=== PATIENT | female | born 1965 | race Two or more races ===

== ENCOUNTER 2022-07-23 16:59 | Emergency (ER) | payer SELFPAY ==
[~2022-07-23] VITALS: Ht 157.5 cm; Wt 66.8 kg
[2022-07-23 18:41] LABS: Basophils # (auto) 0 10 ^3/uL (0-0.2); Basophils % (auto) 0.5 % (0.0-2.0); Eosinophils # (auto) 0.2 10 ^3/uL (0-0.8); Eosinophils % (auto) 2.9 % (0.0-7.0); Hematocrit 40.7 % (36.0-46.0); Hemoglobin 13.2 g/dL (12.2-16.2); Lymphocytes # (auto) 3.3 10 ^3/uL (0.4-5.4); Lymphocytes % (auto) 49.2 % (10.0-50.0); Mean Corpuscular Hemoglobin 27.1 pg (28.0-32.0); Mean Corpuscular Hgb Conc. 32.4 g/dL (32.0-36.0); Mean Corpuscular Volume 83.8 fL (80.0-100.0); Monocytes # (auto) 0.4 10 ^3/uL (0-1.3); Monocytes % (auto) 6.2 % (0.0-12.0); Neutrophils # (auto) 2.8 10 ^3/uL (1.6-8.6); Neutrophils % (auto) 41.2 % (37.0-80.0); Nucleated Red Blood Cells % 0.1 %; Red Blood Cells 4.85 10^6/uL (4.0-5.20); Red Cell Distribution Width 13.7 % (11.8-14.3); White Blood Cell 6.8 10^3/uL (4.4-10.8)
[2022-07-23 18:59] LABS: Albumin 3.9 g/dL (3.4-5.0); Calcium 8.7 mg/dL (8.5-10.1); Magnesium 2.2 mg/dL (1.6-2.6); Potassium 3.8 mmol/L (3.5-5.1)
[2022-07-23 19:06] LABS: Bilirubin, Total 0.4 mg/dL (0.2-1.0); Total Protein 7.3 g/dL (6.4-8.2)
[2022-07-24 03:05] VITALS: BP 141/75
== END 2022-07-24 03:16 | disposition home or self-care (01) ==
LOC: ER 16:59
DX: R51.9 Headache, unspecified (principal)
CPT/HCPCS: 36415; 70450; 80053; 83735; 85025; 85652

== ENCOUNTER 2025-02-14 19:23 | Emergency (ER) | payer MEDICAID, OTHER ==
[~2025-02-14] VITALS: Ht 157.5 cm; Wt 74.5 kg
--- NOTE | 2025-02-14 19:52 | ED.PDOC ---
History of Present Illness(SKN HPI Comments 59-year-old female with no reported PMHx presents with a chief complaint of rash x onset . Patient has a developing rash to the bottom of her left foot, and alongside her right thigh. Patient mentions that the rash on her foot is painful, but the one on her leg itches. Patient is able to ambulate but is in a wheelchair at this time. Patient denies any new soaps, detergents, new foods, or new skin products. Chief Complaint: Rash Time Seen by MD: 19:37 Primary Care Provider: NONE History of Present Illness: Medications, Allergies Allergies: Coded Allergies: NO KNOWN ALLERGIES (Unverified , 07/23/22) Information Source: Patient Mode of Arrival: Wheelchair Severity: Moderate Timing: Days Duration: Since onset Prehospital treatment: None Location: Foot, Leg Mechanism: Spontaneous Onset Developed: Pruritus, Rash Occurence: Indoors Object: None Condition of Object: None Retained Foreign Body: Unknown Immunization Status of Animal: NA Tetanus: Unknown Vital Signs Vital Signs Date Time Temp Pulse Resp B/P (MAP) Pulse Ox O2 Delivery O2 Flow Rate FiO2 02/14/25 19:45 98.5 68 16 115/73 (87) 96 98.5 Physical Exam General: Awake, alert and oriented. No acute distress. Skin: Skin in warm, dry and intact without rashes or lesions. HEENT: The head is normocephalic and atraumatic. Conjunctivae are clear without exudates or hemorrhage. Sclera is non-icteric. Neck: Normal range of motion. No JVD. Cardiac: Regular rate Respiratory: No signs of respiratory distress. No Stridor. Extremities: Vesicular rash along dermatomal pattern posterior left thigh, calf and dorsum of the foot. Mild swelling of the left foot. Neurological: The patient is awake, alert and oriented to person, place, and time with normal speech. Speech is clear. There is no facial asymmetry. Psychiatric: Appropriate mood and affect. Good judgement and insight. Review of Systems: REVIEW OF SYSTEMS: No fever, no chills, HEENT: No neck pain, no blurred vision Cardiac: No chest pain. No palpitations. 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 Was a procedure done?: No Differential Diagnosis (INTG) Differential Diagnosis: Cellulitis, Insect Envenomation, Other Differential Diagnosis: AIDS/HIV, Impetigo, Intertrigo, Molluscum contagiosum, Varicella, Other (Immunocompromise state) X-Ray, Labs, Meds, VS Vital Signs Date Time Temp Pulse Resp B/P (MAP) Pulse Ox O2 Delivery O2 Flow Rate FiO2 02/14/25 19:45 98.5 68 16 115/73 (87) 96 98.5 Lab Test 02/14/25 19:55 Range/Units White Blood Count 4.9 4.4-10.8 10^3/uL Red Blood Count 5.24 H 4.0-5.20 10^6/uL Hemoglobin 14.4 12.2-16.2 g/dL Hematocrit 43.6 36.0-46.0 % Mean Corpuscular Volume 83.2 80.0-100.0 fL Mean Corpuscular Hemoglobin 27.6 L 28.0-32.0 pg Mean Corpuscular Hemoglobin Concent 33.2 32.0-36.0 g/dL Red Cell Distribution Width 14.1 11.8-14.3 % Platelet Count 207 140-450 10^3/uL Mean Platelet Volume 8.0 6.9-10.8 fL Neutrophils (%) (Auto) 52.1 37.0-80.0 % Lymphocytes (%) (Auto) 33.6 10.0-50.0 % Monocytes (%) (Auto) 10.6 0.0-12.0 % Eosinophils (%) (Auto) 3.0 0.0-7.0 % Basophils (%) (Auto) 0.7 0.0-2.0 % Neutrophils # (Auto) 2.6 1.6-8.6 10 ^3/uL Lymphocytes # (Auto) 1.7 0.4-5.4 10 ^3/uL Monocytes # (Auto) 0.5 0-1.3 10 ^3/uL Eosinophils # (Auto) 0.1 0-0.8 10 ^3/uL Basophils # (Auto) 0 0-0.2 10 ^3/uL Nucleated Red Blood Cells 0.2 % Sodium Level 140 136-145 mmol/L Potassium Level 3.9 3.5-5.1 mmol/L Chloride Level 105 98-107 mmol/L Carbon Dioxide Level 26 20-31 mmol/L Anion Gap 9 5-15 Blood Urea Nitrogen 13 9-23 mg/dL Creatinine 0.96 0.550-1.02 mg/dL Glomerular Filtration Rate Calc 69 >90 mL/min BUN/Creatinine Ratio 13.5 10.0-20.0 Serum Glucose 102 74-106 mg/dL Calcium Level 10.0 8.7-10.4 mg/dL Total Bilirubin 0.4 0.2-1.0 mg/dL Aspartate Amino Transferase (AST) 20 13-40 U/L Alanine Aminotransferase (ALT) 32 7-40 U/L Alkaline Phosphatase 81 46-116 U/L Total Protein 7.3 5.7-8.2 g/dL Albumin 4.8 3.2-4.8 g/dL PATIENT: DOMINIQUE SHARMA ACCT: [id number] UNIT: [id number] : 1965 LOC: ER ROOM / BED: / AGE / SEX: 59 / F ADM STATUS: REG ER SERVICE 51 ORDERING PHYSICIAN: ADRIAN AGUSTIN MD PROCEDURE(s): LLDVT - LT Lower DVT REASON: LLE swelling, pain ORDER NUMBER(s): [id number], ACCESSION NUMBER(s): [id number] Left lower extremity venous duplex Clinical History: LLE swelling, pain Comparison: None Technique: Duplex Doppler evaluation of the deep venous system of the left lower extremity from the common femoral vein to the popliteal vein including color Doppler and spectral/pulsed waveform analysis was performed. Findings: The common femoral vein demonstrates appropriate compressibility and waveform variability. There is compressibility/patency of the great saphenous vein at the proximal thigh. The femoral vein demonstrates appropriate compressibility and waveform variability. The deep femoral vein demonstrates appropriate compressibility and waveform variability. The popliteal vein demonstrates appropriate compressibility and waveform variability. There is normal compressibility at the tibioperoneal trunk. Impression: No evidence of left femoropopliteal venous thrombosis. ATED BY: SHIELA BRITO MD DICTATED DATE/TIME: 02/14/252018 SIGNED BY: SHIELA BRITO MD SIGNED DATE/TIME: 02/14/252018 Time of 1ST Reevaluation: 20:07 Reevaluation 1ST: Unchanged Patient Education/Counseling: Need For Follow Up Family Education/Counseling: Need For Follow Up Departure 1 Departure Time of Disposition: 22:12 Impression: Primary Impression: [place] Disposition: 01 HOME / SELF CARE / HOMELESS Condition: Stable Additional Instructions: INSTRUCCIONES DE DEISI DE Urgencias Instrucciones: Barbara atentamente todas las instrucciones proporcionadas en meg paquete. Aunque le hayan dado el deisi del Departamento de Emergencias, esto no significa que tenga un "certificado de buena miranda". Hoy no se duval realizado ningn diagnstico definitivo para bethany sntomas. Es posible que ests en proceso de desarrollar court enfermedad grave. Es por eso que debe regresar al servicio de urgencias sin falta si presenta algn sntoma nuevo o que empeora (especialmente si bethany sntomas incluyen dolor en el pecho, dificultad para respirar, dolor abdominal, fiebre, dolor de cris, confusin, dificultad para kristen o caminar). Tambin es muy importante que consulte a un mdico de atencin primaria dentro de los prximos 3 a 5 griffin para realizar un seguimiento. Si no puede conseguir court cole, regrese al servicio de urgencias para court nueva evaluacin. Herpes zster: instrucciones de cuidado Tabla de contenido Descripcin general Ground Support Equipment Mechanic puedes cuidarte en casa? Cundo debes pedir ayuda? Crditos Herpes Descripcin general El herpes zster causa dolor y court erupcin con ampollas. La erupcin puede aparecer en cualquier parte del cuerpo, susan solo en un lado, el russ o el derecho. Aparece en court alfonso, franja o en court holli pequea. El dolor puede ser muy intenso. El herpes zster tambin puede causar hormigueo o picazn en la holli afectada. Las ampollas elza costras despus de unos griffin y sanan en 2 a 4 semanas. Los medicamentos pueden ayudarle a sentirse mejor y a prevenir problemas ms graves causados ??por el herpes zster. El herpes zster es causado por el mismo virus que causa la varicela. Cuando se tiene varicela, el virus penetra en las races nerviosas y permanece all (en estado latente) mucho despus de que se supera la varicela. Si el virus se activa de nuevo, puede causar herpes zster. El seguimiento es fundamental para velasquez tratamiento y seguridad. Asegrese de programar y acudir a todas bethany citas, y llame a velasquez mdico si tiene algn problema. Tambin es recomendable estar al tanto de los resultados de bethany pruebas y llevar court lista de los medicamentos que ronald. Ground Support Equipment Mechanic puedes cuidarte en casa? [place] bethany medicamentos con precaucin. Tmelos exactamente phan se los recetaron. Llame a velasquez mdico si paul que tiene algn problema con bethany medicamentos. Los antivirales le ayudan a recuperarse ms rpido. Intente no rascarse ni tocarse las ampollas. Mantenga las ampollas hmedas hasta que cicatricen. Court forma de hacerlo es cubrirlas con court joshua capa de vaselina y court venda antiadherente. [place] un analgsico de venta esther, phan acetaminofn (Tylenol), ibuprofeno (Advil, Motrin) o naproxeno (Aleve). Barbara y siga todas las instrucciones de la etiqueta. Evite el contacto cercano con otras personas hasta que las ampollas hayan sanado. Es muy importante que evite el contacto con personas que nunca hayan tenido varicela ni se hayan vacunado contra cassie. Los bebs pequeos y las personas embarazadas o con dificultades para combatir la infeccin (phan las personas con VIH, diabetes o cncer) corren un riesgo especial. Cundo debes pedir ayuda? Llame a velasquez mdico ahora o busque atencin mdica inmediata si: Tiene fiebre nueva o ms deisi. Tienes un ghulam dolor de cris y el rasheeda rgido. Pierdes la capacidad de pensar con claridad. La erupcin se extiende a la frente, la nariz, los ojos o los prpados. Tiene dolor en los ojos o velasquez visin empeora. Tiene un dolor nuevo en la tylor o no puede stock mover los msculos de la tylor. Las ampollas se propagan a nuevas partes del cuerpo. Tiene sntomas de infeccin, phan aumento del dolor, hinchazn, calor o enrojecimiento. Preste atencin a los cambios en velasquez miranda y asegrese de comunicarse con velasquez mdico si: La erupcin no duval sanado despus de 2 a 4 semanas. An tienes dolor despus de que la erupcin haya sanado. Crditos para el herpes zster: Instrucciones de cuidado Actualizado al: 30 [id number] Autor: Personal de [facility] Junta de revisin clnica Toda la educacin de [facility] es revisada por un equipo que incluye mdicos, enfermeras, profesionales avanzados, dietistas registrados y otros profesionales de la miranda. Comments 59-year-old female who presents with a rash appears to be shingles. We will treat with valacyclovir, pain medication. Patient well-appearing, nontoxic. Advised prompt follow-up with PCP, return to the ED with any new, worsening or concerning symptoms. I reviewed the following notes from the pt's past medical encounters: Encounter 2021 for headache The following tests were ordered, and results were reviewed by me: (See diagnostic results section) The following test were independently interpreted by me: N/A Additional information was gathered from interviewing the following independent historians: Patient's daughter at bedside I reviewed and agreed with the following test results read by other providers: N/A I discussed treatments and results with medical personnel and patient Decision regarding hospitalization or escalation of hospital level of care: Risks and benefits of admission for further treatment of patient's condition was considered however due to patient's stable condition patient will be discharged to follow up closely or return to care for worsening of condition or inability to follow up. Critical Care Note Critical Care Time?: No Stability Stability form required: No Heart Score Heart Score: Heart Score Response (Comments) Value History N/A 0 EKG N/A 0 Age N/A 0 Risk Factors N/A 0 Troponin N/A 0 Total 0 I personally scribed for ADRIAN AGUSTIN MD ([employer]) on 02/14/25 at 19:52. Electronically submitted by Alexandro Pratt ([email or web address]). I personally scribed for ADRIAN AGUSTIN MD ([email or web address]) on 02/14/25 at 21:57. Electronically submitted by Alexandro Pratt ([email or web address]). ADRIAN AGUSTIN MD Feb 14, 2025 19:52
--- NOTE | 2025-02-14 20:22 | DVH ---
Left lower extremity venous duplex Clinical History: LLE swelling, pain Comparison: None Technique: Duplex Doppler evaluation of the deep venous system of the left lower extremity from the common femor al vein to the popliteal vein including color Doppler and spectral/pulsed waveform analysis was perfo rmed. Findings: The common femoral vein demonstrates appropriate compressibility and waveform variability. There is compressibility/patency of the great saphenous vein at the proximal thigh. The femoral vein demonstrates appropriate compressibility and waveform variability. The deep femoral vein demonstrates appropriate compressibility and waveform variability. The popliteal vein demonstrates appropriate compressibility and waveform variability. There is normal compressibility at the tibioperoneal trunk. Impression: No evidence of left femoropopliteal venous thrombosis.
[2025-02-14 20:31] LABS: Basophils # (auto) 0 10 ^3/uL (0-0.2); Basophils % (auto) 0.7 % (0.0-2.0); Eosinophils # (auto) 0.1 10 ^3/uL (0-0.8); Hematocrit 43.6 % (36.0-46.0); Hemoglobin 14.4 g/dL (12.2-16.2); Lymphocytes # (auto) 1.7 10 ^3/uL (0.4-5.4); Lymphocytes % (auto) 33.6 % (10.0-50.0); Mean Corpuscular Hemoglobin 27.6 pg (28.0-32.0); Mean Corpuscular Hgb Conc. 33.2 g/dL (32.0-36.0); Mean Corpuscular Volume 83.2 fL (80.0-100.0); Monocytes # (auto) 0.5 10 ^3/uL (0-1.3); Monocytes % (auto) 10.6 % (0.0-12.0); Neutrophils # (auto) 2.6 10 ^3/uL (1.6-8.6); Neutrophils % (auto) 52.1 % (37.0-80.0); Nucleated Red Blood Cells % 0.2 %; Platelet Count (auto) 207 10^3/uL (140-450); Red Blood Cells 5.24 10^6/uL (4.0-5.20); Red Cell Distribution Width 14.1 % (11.8-14.3); White Blood Cell 4.9 10^3/uL (4.4-10.8)
[2025-02-14 20:53] LABS: Alanine Aminotransferase 32 U/L (7-40); Albumin 4.8 g/dL (3.2-4.8); Alkaline Phosphatase 81 U/L (46-116); Anion Gap 9 (5-15); Aspartate Aminotransferase 20 U/L (13-40); BUN/Creatinine Ratio 13.5 (10.0-20.0); Bilirubin, Total 0.4 mg/dL (0.2-1.0); Blood Urea Nitrogen 13 mg/dL (9-23); Carbon Dioxide 26 mmol/L (20-31); Chloride 105 mmol/L (98-107); Glucose 102 mg/dL (74-106); Potassium 3.9 mmol/L (3.5-5.1); Sodium 140 mmol/L (136-145); Total Protein 7.3 g/dL (5.7-8.2)
[2025-02-14] MEDS ORDERED: VALA500T33 PO (22:17)
[2025-02-14] MEDS ORDERED: ACET650T12 PO (22:18)
[2025-02-14] MEDS ORDERED: IBUP-1454 PO (22:18)
[2025-02-14 23:46] VITALS: BP 118/76; PULSE 68; RESP 16; TEMP 98.5; O2SAT 97
== END 2025-02-14 23:48 | disposition home or self-care (01) ==
LOC: ER 19:26
DX: B02.9 Zoster without complications (principal); M79.606 Pain in leg, unspecified; Z98.890 Other specified postprocedural states
CPT/HCPCS: 36415; 80053; 85025; 93971